=== PATIENT | female | born 1950 | race Hispanic/Latino ===

== ENCOUNTER 2016-07-18 21:15 | Emergency (ER) | payer OTHER ==
[2016-07-18 21:32] VITALS: BP 142/86; PULSE 78; TEMP 98.4
[2016-07-18] MEDS ORDERED: Apap-Butalbital-Caffeine 325-50-40mg Tab PO STA (21:53)
--- NOTE | 2016-07-18 22:19 | ED PDOC ---
"Arrival/HPI - General Chief Complaint: Trauma Time Seen by Provider: 07/18/16 21:32 Historian: Patient - History of Present Illness Narrative History of Present Illness (Text): 07/18/16 22:16 66 y/o female, penicillin allergy, c/o headache x 2 days s/p head injury from hitting the corner of the wooden desk. Pt. stated that she has runny nose and nasal congestion for the past 3 days, head injury which added up the headache even more, no numbness or tingling, no chest pain or shortness of breath, no dizziness, no change in vision, no numbness or tingling, no slurred speech, no other medical or psychological complaints. Past Medical History - Provider Review Nursing Documentation Reviewed: Yes - Psychiatric Hx Substance Use: No Family/Social History - Physician Review Nursing Documentation Reviewed: Yes Family/Social History: Unknown Family HX Smoking Status: no Hx Alcohol Use: No Hx Substance Use: No Allergies/Home Meds Allergies/Adverse Reactions: Allergies Penicillins Allergy (Verified 07/18/16 21:32) RASH Sulfa (Sulfonamide Antibiotics) Allergy (Verified 07/18/16 21:32) RASH Review of Systems - Review of Systems Constitutional: absent: Fatigue, Fevers Eyes: absent: Vision Changes ENT: Rhinorrhea. absent: Hearing Changes Respiratory: absent: SOB, Cough Cardiovascular: absent: Chest Pain Gastrointestinal: absent: Abdominal Pain, Diarrhea, Nausea, Vomiting Neurological: Headache. absent: Dizziness, Focal Weakness, Gait Changes, Speech Changes Psychiatric: absent: Anxiety, Depression, Suicidal Ideation Physical Exam Vital Signs Reviewed: Yes Vital Signs Temp Pulse Resp BP Pulse Ox 07/18/16 22:12 98.4 F 78 18 142/86 97 07/18/16 21:27 98.4 F 78 18 142/86 97 Temperature: Afebrile Blood Pressure: Normal Pulse: Regular Respiratory Rate: Normal Appearance: Positive for: Well-Appearing, Non-Toxic, Comfortable Pain Distress: Moderate Mental Status: Positive for: Alert and Oriented X 3 - Systems Exam Head: Present: Atraumatic, Normocephalic, Tenderness (+ttp on the lt. parietal region), Other (+ttp on the lt. maxillary sinus region) Pupils: Present: PERRL Extroacular Muscles: Present: EOMI Conjunctiva: Present: Normal Ears: Present: NORMAL TM, Normal Canal. No: Erythema Mouth: Present: Moist Mucous Membranes Nose (External): Present: Atraumatic. No: Abrasion, Contusion, Laceration Nose (Internal): Present: Normal Inspection, No Active Bleeding, Rhinorrhea. No : Septal Hematoma, Epistaxis Neck: Present: Normal Range of Motion Respiratory/Chest: Present: Clear to Auscultation, Good Air Exchange. No: Respiratory Distress, Accessory Muscle Use, Wheezes, Decreased Breath Sounds, Rales, Retracting, Rhonchi, Tachypneic, Tender to Palpation Cardiovascular: Present: Regular Rate and Rhythm, Normal S1, S2, Other (no pedal edema). No: Murmurs Abdomen: Present: Normal Bowel Sounds. No: Tenderness, Distention, Peritoneal Signs, Rebound, Guarding Back: Present: Normal Inspection Upper Extremity: Present: Normal Inspection. No: Cyanosis, Edema Lower Extremity: Present: Normal Inspection. No: Edema Neurological: Present: GCS=15, Speech Normal, Motor Func Grossly Intact, Gait Normal, Memory Normal, Other (no drift, walking with normal gait and posture. ) Skin: Present: Warm, Dry, Normal Color. No: Rashes Psychiatric: Present: Alert, Oriented x 3, Normal Insight, Normal Concentration Medical Decision Making ED Course and Treatment: 07/18/16 22:19 -fioriocet -CT head -Observe and reassess 07/18/16 23:04 -CT head show no acute traumatic findings but there is sinusitis. -Pt. feels better and wants to be discharged home. -Discharge home with z-pack, zyrtec, flonase, continue tylenol or motrin at home bed, rest, follow up with your own pmd and ENT/neurologist within 2 days, return to the ER for any new or worsening signs or symptoms. - RAD Interpretation Radiology Orders: 07/18/16 21:53 HEAD W/O CONTRAST [CT] Stat FINDINGS: Brain: The white-vaca differentiation is preserved demonstrating no acute territorial type infarct. There is mild prominence of the frontal sulci, compatible with atrophy. No acute intracranial hemorrhage is seen. No edema. Midline shift: There is no midline shift. Ventricles: No ventriculomegaly. Bones/joints: The calvarium demonstrates no evidence for a depressed fracture. Soft tissues: No acute abnormality. Vasculature: Mild atherosclerotic changes are visualized. Sinuses: A small air-fluid level is identified in the left maxillary sinus. There is mucosal thickening of scattered ethmoid air cells. Mastoid air cells: No mastoid effusion. MILADY MCDOWELL | Preliminary Radiology Report MEDICAL I D SALES (QA) DISCREPANCY? If there is a discrepancy between the preliminary and final interpretation, please notify [facility] via [email or web address]. If you do not have access to our QA portal, call our QA team at [phone] CONFIDENTIALITY STATEMENT This report is intended only for the use of the referring physician, and only in accordance with law, If you received this in error, call [phone] Page 2 of 2 IMPRESSION: 1. No acute intracranial hemorrhage or acute territorial type infarct. 2. Mild atrophy. 3. Paranasal sinus disease is noted above. If the patient has facial trauma, a facial CT is recommended. Thank you for allowing us to participate in the care of your patient. Dictated and Authenticated by: Malcolm Smith MD 07/18/2016 10:27 PM Eastern Time ([place] & [place]) Asphalt Raker: Radiologist - Medication Orders Current Medication Orders: Discontinued Medications Acetaminophen/Butalbital/Caffeine (Fioricet) 1 tab PO STAT STA Stop: 07/18/16 21:54 Last Admin: 07/18/16 22:02 Dose: Not Given Non-Admin Reason: Patient Refused - PA / ELECTRONIC BENCH TECHNICIAN / Resident Statement MD/DO has reviewed & agrees with the documentation as recorded. Disposition/Present on Arrival - Present on Arrival Any Indicators Present on Arrival: No History of DVT/PE: No History of Uncontrolled Diabetes: No Urinary Catheter: No History of Decub. Ulcer: No History Surgical Site Infection Following: None - Disposition Have Diagnosis and Disposition been Completed?: Yes Diagnosis: Sinusitis, Head injury, closed, without LOC Disposition: HOME/ ROUTINE Disposition Time: 23:05 Patient Plan: Discharge Patient Problems: Current Active Problems Problem Status Onset Sinusitis Acute Head injury, closed, without LOC Acute Condition: GOOD Additional Instructions: ischarge home with z-pack, zyrtec, flonase, continue tylenol or motrin at home bed, rest, follow up with your own pmd and ENT/neurologist within 2 days, return to the ER for any new or worsening signs or symptoms. Prescriptions: Azithromycin [Zithromax] 1 dose PO DAILY #75 ml Cetirizine HCl [All Day Allergy] 10 ml PO DAILY #100 ml Fluticasone Propionate [Flonase Allergy Relief] 1 spray NS DAILY #1 bot Referrals: Karla White DO [Primary Care Provider] - Follow up with primary Socrates Jones MD [Staff Provider] - Follow up with primary Ismael Chávez DO [Doctor Oste[facility]] - Follow up with primary Forms: WORK NOTE"
[2016-07-18 23:26] VITALS: RESP 16; O2SAT 99
--- NOTE | 2016-07-19 07:48 | CT ---
PROCEDURE: CT HEAD WITHOUT CONTRAST. HISTORY: head injury and headache COMPARISON: None available. TECHNIQUE: Axial computed tomography images were obtained through the head/brain without intravenous contrast. Radiation dose: Total exam DLP = 774 mGy-cm. This CT exam was performed using one or more of the following dose reduction techniques: Automated exposure control, adjustment of the mA and/or kV according to patient size, and/or use of iterative reconstruction technique. FINDINGS: HEMORRHAGE: No intracranial hemorrhage. BRAIN: No mass effect or edema. No atrophy or chronic microvascular ischemic changes. VENTRICLES: Unremarkable. No hydrocephalus. CALVARIUM: Unremarkable. PARANASAL SINUSES: Minimal ethmoidal sinus inflammatory changes. A tiny here flow in the left maxillary sinus consistent with a minimal acute sinusitis here is also suggested MASTOID AIR CELLS: Unremarkable as visualized. No inflammatory changes. OTHER FINDINGS: None. IMPRESSION: No intracranial hemorrhage or mass effect. Paranasal sinus inflammatory changes -as above
== END 2016-07-18 23:26 | disposition home or self-care (01) ==
LOC: ED 21:15
DX: S09.90XA Unspecified injury of head, initial encounter (principal); W22.03XA Walked into furniture, initial encounter; Y93.89 Activity, other specified; Y92.89 Other specified places as the place of occurrence of the external cause; J32.9 Chronic sinusitis, unspecified